=== PATIENT | female | born 1935 | race Caucasian/White ===

== ENCOUNTER 2023-08-15 11:02 | Emergency (ER) | payer MEDICARE, BC ==
[2023-08-15] MEDS: Orphenadrine 60 MG/2 ML Inj IM ONE (11:48)
[2023-08-15] MEDS: Ketorolac 30 MG/ML SDV IM ONE (11:48)
== END 2023-08-15 11:57 | disposition home or self-care (01) ==
LOC: CC.ED 11:02
DX: M25.551 Pain in right hip (principal); I10 Essential (primary) hypertension; Z88.1 Allergy status to other antibiotic agents; Z88.8 Allergy status to other drugs, medicaments and biological substances; Z88.2 Allergy status to sulfonamides; Z88.6 Allergy status to analgesic agent; Z90.49 Acquired absence of other specified parts of digestive tract
CPT/HCPCS: 96372; 99283; J1885; J2360